=== PATIENT | male | born 1995 | race Caucasian/White ===

== ENCOUNTER 2020-09-09 04:43 | Emergency (ER) | payer BC, SELFPAY ==
--- NOTE | ~2020-09-09 | CT_ITS ---
EXAMINATION: CTA chest PE abdomen pel DATE: 09/09/2020 06:21 INDICATION: Chest pain. Epigastric abdominal pain. TECHNIQUE: Computed tomography angiography (CTA) of the chest was performed with 100 mL Omnipaque-350 intravenous contrast timed to evaluate the pulmonary arteries. Coronal maximum intensity projection 3D-reconstructions were created by the technologist. Computed tomography (CT) of the abdomen and pelv is was performed with intravenous contrast. Automated exposure control and iterative reconstruction t echnique were employed. The dose-length product was 870.10 mGy-cm. COMPARISON: None. FINDINGS: CTA chest: The lungs demonstrate minimal atelectasis. A calcified left lung nodule is consistent with old granulomatous disease. No pleural effusion. The heart size is normal. No pericardial effusion. T here is no pulmonary embolus. CT abdomen and pelvis: There is periportal edema in the liver. The gallbladder is contracted. The spl een, pancreas, adrenal glands, and kidneys are normal. There are no dilated loops of bowel. The appen keya is normal. There are no pathologically enlarged lymph nodes. There is no free intraperitoneal flu id. The bones are unremarkable. IMPRESSION: 1. No pulmonary embolus. 2. No etiology for the patient's symptoms. Reviewed, dictated and finalized at location [facility]. [facility]
--- NOTE | 2020-09-09 05:08 | ED.ABDPAIN ---
HPI - Abdominal Pain General Chief Complaint: Abdominal Pain Stated Complaint: Abdominal pain Time Seen by Provider: 09/09/20 05:00 Source: patient Mode of arrival: ambulatory Limitations: no limitations History of Present Illness HPI narrative: Patient was diagnosed 2 days ago with Covid. He had done reasonable well until this am about 2 am he woke with severe epigastric pain, ongoing, a sharp stabbing pain. He comes in now secondary to epigastric pain, which has not been relieved by [place] and other measures at home. MD elicited complaint: abdominal pain Pertinent past history: none Exacerbating factors: nothing Relieving factors: nothing Related Data Allergies Allergy/AdvReac Type Severity Reaction Status Date / Time No Known Allergies Allergy Verified 09/09/20 05:25 Review of Systems Constitutional: Constitutional: Reports no additional constitutional complaints Eyes: Eyes: Reports no additional eye complaints ENT: Reports system reviewed and no additional complaints, except as documented Cardiovascular: Cardiovascular: Reports no additional cardiovascular complaints Respiratory: Respiratory: Reports no additional respiratory complaints Gastrointestinal: Gastrointestinal: Reports no additional gastrointestinal complaints Genitourinary: Genitourinary: Reports no additional male genitourinary complaints Musculoskeletal: Musculoskeletal: Reports no additional musculoskeletal complaints Integumentary/Breasts: Skin/Breast: Reports system reviewed and no additional complaints, except as docu Neurologic: Reports system reviewed and no additional complaints, except as documented Psychiatric: Psychiatric: Reports no additional psychiatric complaints Endocrine: Endocrine: Reports no additional endocrine complaints Hematologic/Lymphatic: Hematologic/Lymphatic: Reports no additional hematologic/lymphatic complaints Allergic/Immunologic: Allergic/Immunologic: Reports no additional allergic/immunologic complaints PMFSH Past Medical History Medical History No significant family history No significant past medical history Surgical History Surgical History No significant past surgical history Social History Social History (Updated 09/09/20 @ 05:18 by Eulogio Meyers MD) Smoking status: Never smoker Alcohol intake: never Exam Const: General: no acute distress Nutritional Appearance: well nourished Orientation/consciousness: patient oriented x3 HENMT: Head: normal to inspection Ears: external ears normal and TM's normal bilaterally Face and sinus: normal facial exam Eyes: Conjunctivae: conjunctivae normal Neck: Neck: normal visual inspection Chest: Chest palpation & inspection: normal inspection of the chest Resp: Effort & Inspection: normal respiratory effort Cardio: Rate: regular rate Rhythm: regular rhythm GI: GI Palp: Yes Soft to palpation Percussion: Yes normal to percussion Auscultation: Hyperactive bowel sounds present Other: nontender Skin: General skin exam: normal color Neuro: General: patient oriented x3 and moves all extremities Extrem: General: normal to inspection Psych: Appearance: grossly normal Mental Status: mental status grossly normal Thought content: Yes Normal thought content present Course Course Emergency Course: Labs were drawn, CT of chest abdomen and pelvis were done. He was given a GI cocktail and ketorolac 30mg IV. The results of labs and CT were discussed with the patient. Discharge Plan Discharge Clinical Impression: Abdominal pain Qualifiers: Abdominal location: generalized Qualified Code(s): R10.84 - Generalized abdominal pain Patient Disposition: Home, Self-Care Condition: Stable Instructions: Antibiotic Form, Abdominal Pain (ED) Additional Instructions: Follow up with family doctor as needed Prescriptions: New dicyclomi
[2020-09-09] MEDS: KETOROLAC 30 MG/ML VIAL (*BKC) IV PUSH (05:20)
[2020-09-09 05:21] VITALS: BP 115/64; PULSE 59; RESP 18; TEMP 35.6; O2SAT 97
[2020-09-09] MEDS: MAG HYDROX/ALUMINUM HYD/SIMETH 30 ML, PHENobarb/HYOSCY/ATROPINE/SCOP 32.4 MG, LIDOCAINE... PO (05:21)
[2020-09-09 05:29] LABS: Basophils Absolute Auto 0.01 K/mm3 (0.00-0.10); Basophils Percent Auto 0.1 % (0.0-1.0); Eosinophils Absolute Auto 0.05 K/mm3 (0.02-0.50); Eosinophils Percent Auto 0.7 % (1.0-6.0); Hematocrit 42.8 % (40.0-54.0); Hemoglobin 14.1 g/dL (14.0-18.0); Immature Granulocyte Absolute 0.03 K/mm3 (0.00-0.00); Immature Granulocyte Percent A 0.4 % (0.0-0.0); Lymphocytes Absolute Auto 1.06 K/mm3 (1.10-4.50); Lymphocytes Percent Auto 14.4 % (18.0-42.0); Mean Corpuscular HGB Conc 32.9 g/dL (32.0-36.0); Mean Corpuscular Hemoglobin 29.1 pg (27.0-31.0); Mean Corpuscular Volume 88.2 fL (78.0-102.0); Mean Platelet Volume 9.6 fl (8.7-11.0); Monocytes Absolute Auto 0.37 K/mm3 (0.10-0.90); Neutrophils Absolute Auto 5.9 K/mm3 (1.7-7.2); Neutrophils Percent Auto 79.4 % (50.0-70.0); Platelet Count Result 158 K/mm3 (150-420); Red Blood Count 4.85 M/mm3 (4.70-6.10); Red Cell Distribution Width 12.6 % (11.6-14.4); White Blood Count 7.4 K/mm3 (4.8-10.8)
[2020-09-09 05:44] LABS: Alanine Aminotransferase 58 U/L (16-63); Albumin Level 3.8 g/dL (3.4-5.0); Alkaline Phosphatase 70 U/L (46-116); Amylase 44 U/L (25-115); Anion Gap 9 mmol/L (8-16); Aspartate Amino Transferase 62 U/L (15-37); Bilirubin,Total 0.6 mg/dL (0.00-1.00); Blood Urea Nitrogen 21 mg/dL (7-18); Calcium 8.2 mg/dL (8.5-10.1); Carbon Dioxide 29 mmol/L (21-32); Chloride 101 mmol/L (98-108); Estimated CRCL calculation 112 ml/min; Estimated Glomerular Filt Rate > 60; Glucose 148 mg/dL (70-99); Lipase 73 U/L (73-393); Osmolality Calculated 294 mOsm/kg (285-295); Potassium 3.2 mmol/L (3.5-5.1); Sodium 139 mmol/L (136-145); Total Protein 6.7 g/dL (6.4-8.2)
[2020-09-09 05:47] LABS: Lactic Acid Reflex 1.2 mmol/L (0.4-2.0)
[2020-09-09 05:48] LABS: Add Urine Microscopic? YES; Appearance Urine Clear (Clear); Bilirubin Urine Negative (Negative); Blood Urine Negative (Negative); Color Urine Yellow (Yellow); Glucose Urine UA Negative (Negative); Ketones Urine 1+ (Negative); Leukocyte Esterase Ur Negative (Negative); Nitrate Urine Negative (Negative); Protein Urine Negative (Negative); Specific Grav Ur >= 1.030 (1.010-1.020); Urobilinogen Urine 0.2 mg/dL (0.2-1.0); pH Urine 5.5 (5.0-8.0)
[2020-09-09 05:55] LABS: Bacteria Urine None seen /hpf; RBC Urine 0-2 /hpf (0-2); Squamous Epithelial Cell Urine None seen /hpf (Few); WBC Urine 0-3 /hpf (0-3)
[2020-09-09 06:57] VITALS: BP 104/50; PULSE 81; RESP 18; TEMP 36.6; O2SAT 99
== END 2020-09-09 07:10 | disposition home or self-care (01) ==
PROVIDERS: Emergency Provider Emergency Medicine
DX: R10.84 Generalized abdominal pain (principal)
CPT/HCPCS: 36415; 71275; 74177; 80053; 81001; 82150; 83605; 83690; 85025; 96374; 99283; 99284; A9270; J1885; Q9965; Q9967